=== PATIENT | male | born 1965 | race Caucasian/White ===

== ENCOUNTER 2016-11-29 17:03 | Emergency (ER) | payer MEDICARE, OTHER ==
[2016-11-29 17:32] LABS: BASOPHILS % 0.4 (0.0-1.5); EOSINOPHILS % 2.9 % (0.0-6.8); MEAN CORPUSCULAR HEMOGLOBIN 30.2 pg (28.0-34.0); MEAN CORPUSCULAR VOLUME 85.9 fl (80.0-100.0); MONOCYTES % 5.8 % (0.0-11.0)
[2016-11-29 17:39] LABS: APPEARANCE,URINE Clear (CLEAR); COLOR,URINE Yellow (YELLOW); OCCULT BLOOD,URINE Negative (NEGATIVE); UROBILINOGEN URINE 0.2 Eu (0.2-1.0)
[2016-11-29 17:46] LABS: eGFR (African) > 60; eGFR (Non-African) 56
--- NOTE | 2016-11-29 18:08 | ED Physician Documentation ---
General Adult - HISTORIAN Historian: patient - HPI Stated Complaint: chest pain Chief Complaint: General Adult Onset: hours Timing: better Further Comments: yes (51 year old male patient brought in by respiratory care faculty from his [facility] with complaints of Chest pain. editorial project manager states patient was sitting in the chair and began complaining of chest pain. Patient states pain is now gone, denies SOB or nausea. Patient cannot accurately give medical history due to mental retardation. editorial project manager did not bring med list or chart, does not know patient's medical history. Old records reviewed.) - ROS CONST: no problems EYES/ENT: none CVS/RESP: none GI/: none MS/SKIN/LYMPH: none NEURO/PSYCH: denies: headache - PAST HX Past History: hypertension, other (MR with behavioral diagnosis, HLD) Other History: diabetes Type 2 Allergies/Adverse Reactions: Allergies Allergy/AdvReac Type Severity Reaction Status Date / Time No Known Allergies Allergy Verified 10/31/15 17:22 Home Medications: Ambulatory Orders Medication Instructions Recorded Fluoxetine HCl [Prozac] 20 mg PO DAILY 10/31/15 Prazosin HCl [Prazosin HCl] 2 mg PO HS 10/31/15 Ziprasidone HCl [Geodon] 80 mg PO BID 10/31/15 Hydrochlorothiazide 25 mg PO QDAY 11/29/16 - SOCIAL HX Smoking History: non-smoker - FAMILY HX Family History: No - VITAL SIGNS Vital Signs: Vital Signs Temp Pulse Resp BP Pulse Ox 98.2 F 54 L 14 139/77 98 11/29/16 17:12 11/29/16 17:12 11/29/16 17:12 11/29/16 17:12 11/29/16 17:12 - REVIEWED ASSESSMENTS Nursing Assessment Reviewed: Yes Vitals Reviewed: Yes Progress - Progress Progress: No pain while in ER, respiratory care faculty at bedside. Reviewed discharge instructions. - EKG/XRAY/CT EKG: rhythm (SB, rate 54, no acute changes. ) ED Results Lab/Radiology - Lab Results Lab Results: Lab Results 11/29/16 11/29/16 11/29/16 17:35 17:20 17:20 WBC RBC Hgb Hct MCV MCH MCHC RDW Plt Count Neut % (Auto) Lymph % (Auto) [place] % (Auto) Eos % (Auto) Baso % (Auto) Neut # Lymph # [place] # Eos # Baso # Reactive Lymphs % Reactive Lymphs # Sodium 141 mmol/L mmol/L (136-145) Potassium 3.2 mmol/L L mmol/L (3.5-5.0) Chloride 106 mmol/L mmol/L (98-110) Carbon Dioxide 30 mmol/L mmol/L (20-32) BUN 18 mg/dL mg/dL (10-26) Creatinine 1.4 mg/dL mg/dL (0.4-1.5) Estimated Creat Clear 78 Est GFR ( Amer) > 60 (60 - ) Est GFR (Non-Af Amer) 56 L (60 - ) Glucose 156 mg/dL H mg/dL (70-99) Calcium 9.8 mg/dL mg/dL (8.5-10.5) Total Bilirubin 0.7 mg/dL mg/dL (0.2-1.2) AST 18 U/L U/L (0-41) ALT 17 U/L U/L (0-45) Alkaline Phosphatase 55 U/L U/L (46-116) Troponin I < 0.03 ng/mL L ng/mL (0.03-0.06) Total Protein 7.2 g/dL g/dL (6.0-8.5) Albumin 4.2 g/dL g/dL (3.0-5.5) Urine Color Yellow (YELLOW) Urine Appearance Clear (CLEAR) Urine pH 6.0 (5.0 - 8.0) Ur Specific [place] 1.020 (1.010-1.030) Urine Protein Negative mg/dL mg/dL (NEGATIVE) Urine Ketones Negative mg/dL mg/dL (NEGATIVE) Urine Occult Blood Negative (NEGATIVE) Urine Nitrite Negative (NEGATIVE) Urine Bilirubin Negative (NEGATIVE) Urine Urobilinogen 0.2 Eu Eu (0.2-1.0) Ur Leukocyte Esterase Negative (NEGATIVE) Urine Glucose Negative mg/dL mg/dL (NEGATIVE) 11/29/16 17:20 WBC 6.40 K/ul K/ul (4.00-12.00) RBC 4.73 M/ul M/ul (3.90-5.20) Hgb 14.3 g/dL g/dL (12.0-18.0) Hct 40.6 % % (37.0-53.0) MCV 85.9 fl fl (80.0-100.0) MCH 30.2 pg pg (28.0-34.0) MCHC 35.2 g/dL g/dL (30.0-36.0) RDW 13.6 % % (11.3-14.3) Plt Count 167 K/mm3 K/mm3 (130-400) Neut % (Auto) 62.3 % % (39.0-79.0) Lymph % (Auto) 26.4 % % (16.0-50.0) [place] % (Auto) 5.8 % % (0.0-11.0) Eos % (Auto) 2.9 % % (0.0-6.8) Baso % (Auto) 0.4 (0.0-1.5) Neut # 4.0 # k/uL # k/uL (1.4-7.7) Lymph # 1.7 # k/uL # k/uL (0.6-4.0) Cascade # 0.4 # k/uL # k/uL (0.0-0.9) Eos # 0.2 # k/uL # k/uL (0.0-0.6) Baso # 0.0 # k/uL # k/uL (0.0-0.5) Reactive Lymphs % 2.2 % % (0.0-5.0) Reactive Lymphs # 0.1 # k/uL # k/uL (0.0-0.8) Sodium Potassium Chloride Carbon Dioxide BUN Creatinine Estimated Creat Clear Est GFR ( Amer) Est GFR (Non-Af Amer) Glucose Calcium Total Bilirubin AST ALT Alkaline Phosphatase Troponin I Total Protein Albumin Urine Color Urine Appearance Urine pH Ur Specific [place] Urine Protein Urine Ketones Urine Occult Blood Urine Nitrite Urine Bilirubin Urine Urobilinogen Ur Leukocyte Esterase Urine Glucose - Orders Orders: ED Orders Category Date Time Status CBC/PLATELET/DIFF Stat Lab 11/29/16 17:20 Completed CMP Stat Lab 11/29/16 17:20 Completed TROPONIN I (cTnI) Stat Lab 11/29/16 17:20 Completed UA W/MICRO IF INDICATED Stat Lab 11/29/16 17:35 Completed EKG WITH COMPARISON Stat Ther 11/29/16 17:12 Ordered General Adult Physical Exam - PHYSICAL EXAM GENERAL APPEARANCE: [id number] N EENT: eye inspection normal, AMARILIS RESPIRATORY: no resp distress, chest non-tender, breath sounds normal CVS: reg rate & rhythm, heart sounds normal, equal pulses, no murmur, no gallop , PMI nml, no JVD, no friction rub, 24 ABDOMEN: soft, no organomegaly, normal bowel sounds, no abdominal bruit, no distension SKIN: normal color, warm/dry, NR, INT, PAL, DR EXTREMITIES: non-tender, normal range of motion, no evidence of injury, no edema , J, KAIAWHINA KOHANGA REO NEURO: oriented X3, CN's nml as tested, motor nml, sensation nml, mood/affect nml Discharge Clincal Impression: Non-cardiac chest pain Home Medications: Ambulatory Orders Fluoxetine HCl [Prozac] 20 mg PO DAILY 10/31/15 Prazosin HCl [Prazosin HCl] 2 mg PO HS 10/31/15 Ziprasidone HCl [Geodon] 80 mg PO BID 10/31/15 Hydrochlorothiazide 25 mg PO QDAY 11/29/16 Condition: Stable Disposition: 01 HOME, SELF-CARE Decision to Admit: NO Decision Time: 18:15
[2016-11-29 18:18] VITALS: BP 145/93
== END 2016-11-29 18:16 | disposition home or self-care (01) ==
LOC: ED 17:03
DX: R07.9 Chest pain, unspecified (principal)
CPT/HCPCS: 36415; 80053; 81002; 84484; 85025; 99283